=== PATIENT | male | born 1945 | race Caucasian/White ===

== ENCOUNTER → 2016-06-07 | Outpatient (CLI) | payer OTHER ==
[~2016-06-07] MED LIST: AMITRIPTYLINE H25 M3 PO; ARICEPT 5 MG TAB5 MG PO; ASPIRIN EC81 M1 PO; ATROVENT30 ML; B-121000 MCG PO; BACTRIM DS TAB1 EACH PO; CEPHALEXIN 500500 M3 PO; COLACE 100 MG100 MG PO; CYMBALTA60 MG PO; D-20002000 UNIT PO; FLEXERIL PO; GLUMETZA500 PO; HYDROCODON-ACE1 EAC8; IRON325 PO; LIPITOR40 MG PO; LISINOPRIL40 MG; LORTAB 7.5/5001 TA3 PO; METAMUCIL0.52 GM PO; MIRALAX17 GM PO; PERCOCET 5-3251 EACH PO; PRINIVIL5 MG PO; PROTONIX40 M2 PO; REGLAN 10 MG TA10 MG PO; SENNA PO; TAMSULOSIN HCL0.4 MG PO; TRICOR145 MG PO; VITAMIN B-12100 MC1; VITAMIN D1000 UNI1
[2016-06-07 08:51] LABS: CREATININE 1.3 mg/dL (0.6-1.3)
== END ==
LOC: CAT 02:13
PROVIDERS: Specialist
DX: I70.90 Unspecified atherosclerosis (principal); I77.1 Stricture of artery; R10.9 Unspecified abdominal pain

== ENCOUNTER 2016-08-03 14:17 | Inpatient (IN) | payer OTHER ==
[~2016-08-03] VITALS: Ht 170.2 cm; Wt 71.7 kg
--- NOTE | ~2016-08-03 | EKG ---
[address] [address] ELECTROCARDIOGRAM REPORT Name: CHAPINCITO JOHNSON Room #: 303-P ADM IN M.R.#: [id number] Admission: 08/03/16 Attend Phys: Judy Ordonez MD Discharge: Date of : 45 Report #: [id number] THIS REPORT FOR: //name// [facility] ED Test Date: 2016-08-03 Test Time: 15:14:21 Pat Name: CHAPINCITO JOHNSON Department: Room: 303 Gender: M Product Design Manager: Sammi DORANTES : 1945 Requested By: Carleen Neil Order Number: [id number] MD: Thanh Barba Measurements Intervals [place] Rate: 94 P: 60 DE: 116 QRS: 59 QRSD: 87 T: 54 QT: 354 QTc: 443 Interpretive Statements Sinus rhythm Borderline short DE interval Compared to ECG 09/01/2014 17:18:48 No significant change was found Electronically Signed On 08-04-2016 11:29:33 CDT by Thanh Barba [email or web address] <ELECTRONICALLY SIGNED> By: Thanh Barba MD, [facility] 08/04/16 1129 1514 151 Thanh Barba MD, FACC /EPI
--- NOTE | ~2016-08-03 | H ---
[facility] [place] [address] HISTORY AND PHYSICAL Name: CHAPINCITO JOHNSON Room #: 303-P [facility] IN M.R.#: [id number] Admission: 08/03/16 Attend Phys: Judy Ordonez MD Discharge: 08/07/16 Date of : 45 Report #: [id number] THIS REPORT FOR: //name// CC: Scotty Oconnor Bhargav Oakes Judy Ordonez DATE OF SERVICE: 08/03/2016 CHIEF COMPLAINT: Abdominal pain, nausea and vomiting. HISTORY OF PRESENT ILLNESS: The patient is a 71-year-old man with multiple medical problems, including peripheral vascular disease and superior mesenteric artery stenosis, who had procedure done by interventional radiologist. I do not have details about the procedure, but the patient's states that it was iliac to mesenteric bypass stent. The patient was doing well after procedure. The last couple of days, he started having abdominal pain, nausea and vomiting. The patient has chronic diarrhea, which also has been worse. The patient presented to the Emergency Room with these complaints. His white count was found to be elevated 19.5. Blood pressure is stable, and the patient is afebrile with temperature of 98.1. CT scan showed small-bowel obstruction. The patient describes his pain as 10/10. He received IV fluids and p.r.n. treatment. He feels somewhat better, but still remains symptomatic. PAST MEDICAL HISTORY: 1. Hypertension. 2. Severe peripheral vascular disease, iliac stents and superior mesenteric artery stent placements. No specific details available to me. 3. Colon cancer, status post colon resection several years ago. Reportedly, in remission. 4. Hypertension. 5. Dyslipidemia. 6. History of lung cancer, status post right lung lobectomy. Reportedly, free of disease. Peptic ulcer disease. CURRENT MEDICATIONS: Reviewed and documented in the patient's chart. FAMILY HISTORY: Reviewed and not pertinent to the patient's current condition. SOCIAL HISTORY: The patient lives with his . He quit smoking cigarettes in 2001. He does not drink alcohol. [facility] [address] [place] [address] HISTORY AND PHYSICAL Name: CHAPINCITO JOHNSON Room #: 303-P [facility] IN M.R.#: [id number] Admission: 08/03/16 Attend Phys: Judy Ordonez MD Discharge: 08/07/16 Date of : 45 Report #: [id number] REVIEW OF SYSTEMS: As above in HPI section. All others negative. PHYSICAL EXAMINATION: GENERAL: The patient is an elderly man who is uncomfortable due to his ongoing symptoms. VITAL SIGNS: Blood pressure is 129/56, heart rate is 82, respiration is 20 and temperature is 98.1. HEENT: Pupils are equal. Eye movements are normal. Sclerae are anicteric. Oral mucosa is very dry. Ear examination is deferred. NECK: The patient has no JVD. RESPIRATORY: Chest moves symmetrically with breathing. Lungs are clear to auscultation bilaterally. CARDIOVASCULAR: The patient has regular rhythm and rate. He has no murmurs, gallops or rubs. GASTROINTESTINAL: Abdomen is very distended and firm. Bowel sounds are not audible. Hepatomegaly or splenomegaly cannot be palpated. MUSCULOSKELETAL: The patient has no edema, cyanosis or clubbing. He has no joint deformities. NEUROLOGIC: The patient is alert and oriented x 3. His examination is grossly nonfocal. SKIN: Skin is dry. No acute skin lesions are appreciated. LABORATORY DATA: CBC: White count is 19.5. Hemoglobin is 12.5, hematocrit is 38.3, platelets 504. Segments 82.3, lymphocytes 10.5. On metabolic profile, sodium is 131, potassium 4.1, chloride 96, BUN is 14, creatinine is 1.1, glucose is 206, liver function tests are normal, GFR is 46, calcium is 10.6. Urinalysis is pending. ASSESSMENT AND PLAN: A 71-year-old man who comes to the hospital with above symptoms. Again, the patient has acute onset of nausea and vomiting, severe abdominal pain, distended and very firm abdomen on examination, and diminished bowel sounds. CT scan of the abdomen showed bowel obstruction. 1. Acute abdomen. The patient is currently hemodynamically stable. White count is elevated at 19.5. CT scan of the abdomen shows small-bowel obstruction. The patient is severely symptomatic. General surgeon is consulted from the Emergency Room. Input is very much appreciated. The patient will be started on IV fluids, and broad spectrum antibiotics as well as on p.r.n. medications for symptom control. His condition will be monitored closely on telemetry unit. 2. Superior mesenteric artery stenosis, recent stent placement by interventional radiologist. Outside records are requested. Although symptoms are unlikely to be related to recent stent placement, interventional radiologist is notified. 3. Diabetes mellitus type 2, mild hyperglycemia. For now, we will use sliding scale insulin. [facility] [address] [place] [address] HISTORY AND PHYSICAL Name: CHAPINCITO JOHNSON Room #: 303-P DIS IN M.Funmi.#: [id number] Admission: 08/03/16 Attend Phys: Judy Ordonez MD Discharge: 08/07/16 Date of : 45 Report #: [id number] 4. Deep venous thrombosis prophylaxis. SCDs, no anticoagulation for now possible procedure. 5. Hypertension. Lisinopril is held, as well as other oral medications are held for now. We will use hydralazine p.r.n. DISPOSITION: The patient is admitted to the hospital, telemetry unit. <ELECTRONICALLY SIGNED> By: Judy Ordonez MD 08/12/16 1743 1822 1858 Judy Ordonez MD /nt
--- NOTE | ~2016-08-03 | HC ---
[facility] [place] [address] CONSULTATION Name: CHAPINCITO JOHNSON Room #: 303-P [facility] IN M.R.#: [id number] Admission: 08/03/16 Attend Phys: Judy Ordonez MD Discharge: 08/07/16 Date of : 45 Report #: [id number] THIS REPORT FOR: //name// CC: Scotty Oconnor Bhargav Oakes Judy Ordonez DATE OF SERVICE: 08/03/2016 CHIEF COMPLAINT: Abdominal pain, nausea and vomiting. HISTORY OF PRESENT ILLNESS: The patient is a 71-year-old male patient with history of peripheral vascular disease, mesenteric ischemia, multiple medical issues including diabetes mellitus, coronary artery disease with prior multiple abdominal operations. He was seen in the Emergency Department on August 03 with 1-2 day history of severe nausea and multiple episodes of emesis. The patient had 2 weeks prior to this undergone an interventional radiology procedure with stent placement for the celiac trunk for mesenteric ischemia. He had prior history of chronic diarrhea and abdominal pain in the upper abdomen with bloating and distention over the past 6 months. This had apparently worsened over the past several months following his stent placement. This seemed to improve for about 5 days, but then recurred. The patient prior to that procedure had had a completely included celiac trunk reportedly and on CT angiography in the Emergency Department on August 03, this was shown to be widely patent based upon contrast flow through that stent. Interestingly, despite his multiple episodes of nausea and vomiting. The patient had continued to pass flatus throughout that time, even the day of being seen in the Emergency Department he was still passing flatus. He does follow with Gastroenterology with Dr. Oakes and has previously been treated with Reglan for apparent gastroparesis. He has had prior EGD and gastric emptying study, which was delayed. EGD apparently did not show hiatal hernia. The patient has also history of colon cancer, status post partial colectomy and an history of small-bowel obstructions, requiring a small-bowel resection several years ago. PAST MEDICAL HISTORY: Dementia, peripheral vascular disease, chronic mesenteric ischemia, remote history of colon cancer status post partial colectomy and then small-bowel obstruction with subsequent small bowel resection, history of kidney stones, non-insulin dependent diabetes mellitus, COPD, hypertension, hyperlipidemia, peptic ulcer disease, remote history of lung cancer. PAST SURGICAL HISTORY: Positive for cholecystectomy, hip replacement, orchiectomy with hernia repair, cervical fusion, colonic resection, lung resection, celiac and lower extremity stent placement, small bowel resection for small-bowel obstruction. [address] [address] CONSULTATION Name: CHAPINCITO JOHNSON Room #: 303-P [facility] IN .R.#: [id number] Admission: 08/03/16 Attend Phys: Judy Ordonez MD Discharge: 08/07/16 Date of : 45 Report #: [id number] ALLERGIES: Include NONSTEROIDAL ANTI-INFLAMMATORIES as well as intolerant to ASPIRIN and LYRICA. MEDICATIONS: Include metformin, Plavix, amitriptyline, atorvastatin, cholecalciferol, cyanocobalamin, duloxetine, fenofibrate, donepezil, hydrocodone, lisinopril, pantoprazole, and Psyllium. SOCIAL HISTORY: The patient is a nonsmoker. Denies ETOH use. He is seen with his who provides a great deal of the history as the patient is somewhat forgetful. [place], [place] REVIEW OF SYSTEMS: CONSTITUTIONAL: Negative for fevers, chills or unwanted weight loss. OCULAR: No diplopia or visual change. HEENT: No dysphagia or odynophagia. No voice changes. CARDIOVASCULAR: No chest pain or palpitations. PULMONARY: No productive cough, no shortness of breath. GASTROINTESTINAL: Positive for nausea, vomiting, abdominal pain, bloating and distention. Negative for melena or hematochezia. MUSCULOSKELETAL: No back pain or joint swelling. NEUROLOGIC: No focal weakness or numbness. CUTANEOUS: Negative for rashes or lesions. ENDOCRINE: No heat or cold intolerance. He does have history of non-insulin dependent diabetes mellitus. HEMATOLOGIC: No ecchymosis or spontaneous epistaxis. PHYSICAL EXAMINATION: GENERAL: The patient is awake, alert and oriented. He is uncomfortable, complaining of abdominal pain. HEENT: Head is atraumatic and normocephalic. Pupils are equally round and reactive. No icterus is appreciated. Mucosae are pink and moist. NEUROLOGIC: Cranial nerves are intact and symmetric. NECK: Supple, no jugular venous distention is appreciated. HEART: Regular without obvious murmur. LUNGS: Clear to auscultation. No respiratory distress. ABDOMEN: Soft and mildly distended. He is tender in the left mid abdomen and left upper quadrant. No rebound or guarding is appreciated. Multiple well-healed surgical scars. No obvious hernia appreciated. EXTREMITIES: Without clubbing, cyanosis or edema. PSYCHIATRIC: Normal mood and affect. The patient is somewhat forgetful as mentioned above and he does defer to his for many details of the history. NEUROLOGIC: No focal deficits. Fluent of speech with clear diction. LABORATORY DATA: Laboratory studies reviewed. Lactate of 1.3. White count of 19.5, hemoglobin of 12.5, platelets of 504. Complete metabolic profile reviewed. Sodium 131, potassium 4.1, BUN 14, creatinine 1.5, lipase of 176, total bilirubin is 0.4, AST 32, ALT of 34, BUN of 4.6. CT angiogram of the abdomen and pelvis reviewed in detail with staff Radiology. This shows a moderate small-bowel obstruction with transition region in the mid to distal jejunum or proximal ileum. No mucosal thickening, which would suggest ischemia, mild SMA short segmental plaque stenosis of 30-40%, unchanged from prior study. Celiac trunk with stent in place, which is widely patent. This is improved compared to previous exam where it was completely occluded. Mild [facility] [address] [place] [address] CONSULTATION Name: CHAPINCITO JOHNSON Room #: 303-[facility] IN M.R.#: [id number] Admission: 08/03/16 Attend Phys: Judy Ordonez MD Discharge: 08/07/16 Date of : 45 Report #: [id number] atherosclerotic plaque in the bilateral external iliac arteries and proximal left SFA. IMPRESSION AND PLAN: 1. 71-year-old male patient with complex medical and surgical history including peripheral vascular disease, mesenteric ischemia, 2 weeks status post stent placement per iliac trunk, which had been previously occluded and which is now widely patent. Clinical picture consistent with partial small-bowel obstruction versus ileus. This is complicated as the patient has continued to pass flatus, but has shown abdominal distention, bloating, nausea and vomiting. Normal lactate level with leukocytosis noted. Abdominal exam reassuring. The patient certainly does not have peritonitis based upon his exam. Given his multiple prior abdominal operations, intraabdominal adhesions could play a role in this partial obstruction picture, would not recommend immediate surgical intervention at this time. Would continue with nasogastric decompression of the GI tract. Continue with IV fluid hydration and IV antibiotic coverage, which has been started in the Emergency Department. Agree with plan for gastroenterology evaluation, as the patient is already known to GI service with Dr. Oakes following closely. 2. Will continue with serial abdominal examinations and make further recommendations based upon clinical status, laboratory, and radiographic findings. Greater than 1 hour utilized reviewing the patient's records, imaging from prior admissions as well as this evening in the Emergency Department, and with discussing with various members of the medical team. <ELECTRONICALLY SIGNED> By: Haseeb Marshall MD 08/09/16 0842 1617 0057 Haseeb Marshall MD /nt
[~2016-08-03 14:17] MED LIST changes: -AMITRIPTYLINE H25 M3 PO; -ARICEPT 5 MG TAB5 MG PO; -B-121000 MCG PO; -CYMBALTA60 MG PO; -D-20002000 UNIT PO; -LIPITOR40 MG PO; -METAMUCIL0.52 GM PO; -PRINIVIL5 MG PO; -PROTONIX40 M2 PO; -TRICOR145 MG PO
[2016-08-03 14:20] VITALS: BP 127/78
[2016-08-03 15:13] LABS: ABSOLUTE NEUTROPHILS 16.1 thou/uL (1.4-8.2); BASOPHILS 0.2 % (0.0-2.0); EOSINOPHILS 1.2 % (0.0-3.0); HEMATOCRIT 38.3 % (42.0-52.0); HEMOGLOBIN 12.5 gm/dL (14.0-18.0); LYMPHOCYTES 10.5 % (24.0-44.0); MCH 26.9 pg (26.0-34.0); MCHC 32.7 g/dL (28.0-37.0); MCV 82.2 fL (80.0-100.0); MONOCYTES 5.8 % (1.0-8.0); PLATELET COUNT 504 thou/uL (150-400); POLYS 82.3 % (36.0-66.0); RBC 4.66 mil/uL (4.50-6.00); RDW 14.6 % (10.5-14.5); WBC 19.5 thou/uL (4.0-11.0)
[2016-08-03 15:18] LABS: CALCIUM 10.6 mg/dL (8.5-10.1); CREATININE 1.5 mg/dL (0.7-1.3); MANUAL DIFF NO; POTASSIUM 4.1 mmol/L (3.5-5.1)
[2016-08-03 15:22] LABS: ALBUMIN 4.6 g/dL (3.4-5.0); TOTAL BILIRUBIN 0.4 mg/dL (<0.1-1.0); TOTAL PROTEIN 8.4 g/dL (6.4-8.2)
[2016-08-03 19:35] VITALS: BP 129/76
[2016-08-03 19:50] VITALS: BP 107/68
[2016-08-03] MEDS ORDERED: PLAVIX 75 MG TA75 M1 PO (20:44)
[2016-08-04 00:10] VITALS: BP 97/50
[2016-08-04 04:00] VITALS: BP 92/54
[2016-08-04 06:02] LABS: ABSOLUTE NEUTROPHILS 6.1 thou/uL (1.4-8.2); BASOPHILS 0.5 % (0.0-2.0); EOSINOPHILS 4.3 % (0.0-3.0); LYMPHOCYTES 21.2 % (24.0-44.0); MCH 27.3 pg (26.0-34.0); MCHC 33.3 g/dL (28.0-37.0); MONOCYTES 11.1 % (1.0-8.0); POLYS 62.9 % (36.0-66.0); RBC 3.42 mil/uL (4.50-6.00); RDW 14.5 % (10.5-14.5); WBC 9.7 thou/uL (4.0-11.0)
[2016-08-04 06:08] LABS: HEMOGLOBIN 9.3 gm/dL (14.0-18.0); MANUAL DIFF NO; PLATELET COUNT 351 thou/uL (150-400)
[2016-08-04 06:16] LABS: CREATININE 1.2 mg/dL (0.7-1.3); POTASSIUM 3.9 mmol/L (3.5-5.1); TOTAL BILIRUBIN 0.4 mg/dL (<0.1-1.0); TOTAL PROTEIN 5.8 g/dL (6.4-8.2)
[2016-08-04 06:20] LABS: CALCIUM 8.5 mg/dL (8.5-10.1)
[2016-08-04 07:40] VITALS: BP 108/52
[2016-08-04 16:11] VITALS: BP 105/53
[2016-08-04 20:15] VITALS: BP 116/54
[2016-08-05 08:10] VITALS: BP 114/50
[2016-08-05 16:00] VITALS: BP 113/54
[2016-08-05] MEDS ORDERED: D-20002000 UNIT PO (17:08)
[2016-08-05] MEDS ORDERED: LIPITOR40 MG PO (17:08)
[2016-08-05] MEDS ORDERED: B-121000 MCG PO (17:08)
[2016-08-05] MEDS ORDERED: CYMBALTA60 MG PO (17:09)
[2016-08-05] MEDS ORDERED: ARICEPT 5 MG TAB5 MG PO (17:09)
[2016-08-05] MEDS ORDERED: TRICOR145 MG PO (17:09)
[2016-08-05] MEDS ORDERED: PROTONIX40 M2 PO (17:10)
[2016-08-05] MEDS ORDERED: PRINIVIL5 MG PO (17:10)
[2016-08-05] MEDS ORDERED: METAMUCIL0.52 GM PO (17:11)
[2016-08-05] MEDS ORDERED: AMITRIPTYLINE H25 M3 PO (19:28)
[2016-08-05 20:00] VITALS: BP 127/56
[2016-08-06 04:00] VITALS: BP 119/60
[2016-08-06 05:22] LABS: HEMATOCRIT 28.6 % (42.0-52.0); HEMOGLOBIN 9.7 gm/dL (14.0-18.0); MCH 27.9 pg (26.0-34.0); MCHC 33.8 g/dL (28.0-37.0); MCV 82.5 fL (80.0-100.0); RBC 3.46 mil/uL (4.50-6.00); RDW 14.6 % (10.5-14.5); WBC 7.7 thou/uL (4.0-11.0)
[2016-08-06 05:26] LABS: CALCIUM 8.6 mg/dL (8.5-10.1); POTASSIUM 3.6 mmol/L (3.5-5.1)
[2016-08-06 07:30] VITALS: BP 127/54
[2016-08-06 16:00] VITALS: BP 135/52
[2016-08-06 19:30] VITALS: BP 121/58
[2016-08-07 03:30] VITALS: BP 123/54
[2016-08-07 07:30] VITALS: BP 119/57
[2016-08-07 08:46] LABS: ABSOLUTE NEUTROPHILS 4.9 thou/uL (1.4-8.2); BASOPHILS 0.7 % (0.0-2.0); EOSINOPHILS 4.6 % (0.0-3.0); HEMATOCRIT 29.4 % (42.0-52.0); HEMOGLOBIN 10.1 gm/dL (14.0-18.0); LYMPHOCYTES 24.5 % (24.0-44.0); MCH 28.1 pg (26.0-34.0); MCHC 34.2 g/dL (28.0-37.0); MCV 82.1 fL (80.0-100.0); MONOCYTES 10.9 % (1.0-8.0); PLATELET COUNT 337 thou/uL (150-400); POLYS 59.3 % (36.0-66.0); RBC 3.58 mil/uL (4.50-6.00); RDW 14.4 % (10.5-14.5); WBC 8.2 thou/uL (4.0-11.0)
[2016-08-07 08:50] LABS: MANUAL DIFF NO
[2016-08-07 08:54] LABS: CALCIUM 8.6 mg/dL (8.5-10.1); POTASSIUM 3.6 mmol/L (3.5-5.1)
[2016-08-07 15:40] VITALS: BP 113/54
[2016-08-07] MEDS ORDERED: REGLAN 10 MG TA10 MG PO (16:14)
[2016-08-07 16:28] VITALS: BP 113/54
== END 2016-08-07 17:42 | disposition home or self-care (01) | DRG 388 ==
LOC: ER 14:17 → 3N 17:22 → EROBS 17:22 → 3N 19:57
PROVIDERS: Hospitalist; Physician Assistant
PROC: 0D9670Z Drainage of Stomach with Drainage Device, Via Natural or Artificial Opening (ICD-10-PCS; principal; 2016-08-03)
DX: K56.60 Unspecified intestinal obstruction (principal); N17.0 Acute kidney failure with tubular necrosis; F03.90 Unspecified dementia, unspecified severity, without behavioral disturbance, psychotic disturbance, mood disturbance, and anxiety; E11.51 Type 2 diabetes mellitus with diabetic peripheral angiopathy without gangrene; K52.9 Noninfective gastroenteritis and colitis, unspecified; E11.65 Type 2 diabetes mellitus with hyperglycemia; I10 Essential (primary) hypertension; J44.9 Chronic obstructive pulmonary disease, unspecified; I25.10 Atherosclerotic heart disease of native coronary artery without angina pectoris; D72.829 Elevated white blood cell count, unspecified; K57.90 Diverticulosis of intestine, part unspecified, without perforation or abscess without bleeding; E78.5 Hyperlipidemia, unspecified; Z96.649 Presence of unspecified artificial hip joint; Z85.038 Personal history of other malignant neoplasm of large intestine; Z90.49 Acquired absence of other specified parts of digestive tract; Z87.891 Personal history of nicotine dependence; Z87.442 Personal history of urinary calculi; Z87.11 Personal history of peptic ulcer disease; Z85.118 Personal history of other malignant neoplasm of bronchus and lung; Z79.899 Other long term (current) drug therapy; Z88.6 Allergy status to analgesic agent; Z88.8 Allergy status to other drugs, medicaments and biological substances; Z98.1 Arthrodesis status; Z86.010 Personal history of colon polyps
CPT/HCPCS: 10795